=== PATIENT | female | born 1955 | race Two or more races ===

== ENCOUNTER 2024-01-22 06:33 | Emergency (ER) | payer OTHER ==
[~2024-01-22] VITALS: Ht 165.1 cm; Wt 110.0 kg
[2024-01-22 06:50] VITALS: BP 110/60; PULSE 93; RESP 20; O2SAT 95
== END 2024-01-22 07:08 | disposition left against medical advice (07) ==
LOC: ER 06:33 → EDBD 06:33 → ER 07:08
DX: M54.9 Dorsalgia, unspecified (principal); Z53.21 Procedure and treatment not carried out due to patient leaving prior to being seen by health care provider